=== PATIENT | male | born 1960 | race Caucasian/White ===

== ENCOUNTER 2020-02-09 21:06 | Emergency (ER) | payer BC ==
[2020-02-09 21:15] VITALS: BP 136/88; PULSE 88
--- NOTE | 2020-02-09 21:37 | EDM.PDOC ---
ED HPI GENERAL MEDICAL PROBLEM - General Chief Complaint: Laceration Stated Complaint: HEAD INJURY Time Seen by Provider: 02/09/20 21:10 Source of Information: Reports: Patient History Limitations: Reports: No Limitations - History of Present Illness INITIAL COMMENTS - FREE TEXT/NARRATIVE: TRIAGE NOTE -- patient states he tripped on a rug around 730pm and hit the back of his head on a chair. he had no LOC and is not on a blood thinner. 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 As he stood up he fell over backwards and hit his head on a chair rung. This is what produced the laceration. He did not lose consciousness. He was not the least bit dazed. No neck pain. This was not a hard fall. No risk factors. Only treatment prior to arrival was putting some pressure on with some fabric or paper. He came by POV to the emergency department being driven by . There is minimal pain and little bleeding. Head Pain Score (Numeric/FACES): 3 - Related Data Allergies Allergy/AdvReac Type Severity Reaction Status Date / Time No Known Allergies Allergy Verified 02/09/20 21:14 Home Meds: Home Meds . [No Known Home Meds] 02/09/20 [History] Past Medical History - Past Health History Medical/Surgical History: Denies Medical/Surgical History Social & Family History - Tobacco Use Smoking Status *Q: Unknown Ever Smoked ED ROS GENERAL - Review of Systems Review Of Systems: Comprehensive ROS is negative, except as noted in HPI. ED EXAM, SKIN/RASH Exam: See Below Exam Limited By: No Limitations General Appearance: Alert, WD/WN, No Apparent Distress Eye Exam: Bilateral Eye: EOMI, PERRL Ears: Normal External Exam Nose: Normal Inspection Throat/Mouth: Normal Inspection, Normal Lips, Normal Voice, No Airway Compromise Head: Normocephalic, Other (Close to apex of head slightly to the left of midline there is a slightly diagonal 5 cm laceration clean no debris no foreign body clean margins minimal bleeding full-thickness of scalp.) Neck: Normal Inspection, Supple, Non-Tender, Full Range of Motion Respiratory/Chest: No Respiratory Distress, Lungs Clear Cardiovascular: Regular Rate, Rhythm GI/Abdominal: Soft, Non-Tender Back Exam: Normal Inspection Extremities: Normal Inspection, Non-Tender Neurological: Alert, Oriented, Normal Cognition, No Motor/Sensory Deficits Psychiatric: Normal Affect, Normal Mood Skin: Warm, Dry, Intact (Except as noted above), Normal Color Course - Vital Signs Last Recorded V/S: Last Vital Signs Temp 36.2 C 02/09/20 21:12 Pulse 88 02/09/20 21:12 Resp 16 02/09/20 21:12 BP 136/88 02/09/20 21:12 Pulse Ox 100 02/09/20 21:12 - Re-Assessments/Exams Free Text/Narrative Re-Assessment/Exam: 02/09/20 21:40 As the patient had no neurological symptoms no loss of consciousness was not at all days this was not a hard fall no neck tenderness or any issue of concern there was no need for imaging. No risk factors no anticoagulation is noted. The wound was cleansed with Betadine and irrigated with copious amount of normal saline, sterile. Wound was closed uneventfully with 12 small skin tammie. No local anesthesia was required. Patient tolerated well with minimal discomfort. See instructions below. Departure - Departure Time of Disposition: 21:42 Disposition: Home, Self-Care 01 Condition: Good Clinical Impression: Scalp laceration Qualifiers: Encounter type: initial encounter Qualified Code(s): S01.01XA - Laceration without foreign body of scalp, initial encounter - Discharge Information *PRESCRIPTION DRUG MONITORING PROGRAM REVIEWED*: Not Applicable *COPY OF PRESCRIPTION DRUG MONITORING REPORT IN PATIENT JA: Not Applicable Instructions: Sutures, Orchard, or Adhesive Wound Closure Referrals: Dionna Vaughan, [employer] [Primary Care Provider] - Additional Instructions: You have been treated for a simple scalp laceration. As there was no loss of consciousness or any other neurological issue and no neck pain there was no need for imaging. The wound has been closed with tammie. After 24 hours you can gently irrigate the area with plain water. Antibiotics are rarely required for this kind of laceration. In the event of pain redness swelling discharge fever or any other concern please return to ER immediately. Tammie can be removed in about 7 days. You may come to the ER for that removal. You may want to report this injury to your primary and arrange any follow-up recommended by primary. Sepsis Event Note - Evaluation Sepsis Screening Result: No Definite Risk - Focused Exam Vital Signs: Vital Signs Temp Pulse Resp BP Pulse Ox 02/09/20 21:12 36.2 C 88 16 136/88 100 Date Exam was Performed: 02/09/20 Time Exam was Performed: 21:32
== END 2020-02-09 21:53 | disposition home or self-care (01) ==
LOC: JD.ED 21:06
DX: S01.01XA Laceration without foreign body of scalp, initial encounter (principal); W01.10XA Fall on same level from slipping, tripping and stumbling with subsequent striking against unspecified object, initial encounter; Y99.0 Civilian activity done for income or pay
CPT/HCPCS: 12002; 99282

== ENCOUNTER 2020-03-24 08:29 | Day surgery (SDC) | payer BC ==
[~2020-03-24 08:29] MED LIST: Lidocaine 1%/Sod Bicarbonate in NS 8.4% 1 ML Syringe IDERM PRN; Sodium Chloride 0.9% 10 ML Syringe FLUSH PRN
[2020-03-24] MEDS: Lactated Ringers 1,000 ML IV SCH ×2 (08:40→13:34)
--- NOTE | 2020-03-24 09:23 | PCM.PREANE ---
Preanesthetic Assessment - Procedure Proposed Procedure: Screening Colonoscopy - Anesthesia/Transfusion/Family Hx Anesthesia History: Prior Anesthesia Without Reaction Family History of Anesthesia Reaction: No - Review of Systems General: No Symptoms Pulmonary: No Symptoms Cardiovascular: No Symptoms, Other (History of PVCs in the past. He will feel skipping sometimes. Does not get dizzy or have any other trouble with his heart. ) Gastrointestinal: No Symptoms Neurological: No Symptoms, Other (Left ear tinnitus at times. None this morning. ) Other: Reports: None - Physical Assessment NPO Status Date: 03/24/20 NPO Status Time: 04:30 (prep ) Vital Signs: 152/87 69 16 96% 97.3F Weight: 82 kg ASA Class: 2 Mental Status: Alert & Oriented x3 Airway Class: Mallampati = 3 Dentition: Reports: Caries Thyro-Mental Finger Breadths: 3 Mouth Opening Finger Breadths: 3 ROM/Head Extension: Full Lungs: Clear to Auscultation, Normal Respiratory Effort Cardiovascular: Regular Rate, Regular Rhythm - Allergies Allergies/Adverse Reactions: Allergies Allergy/AdvReac Type Severity Reaction Status Date / Time No Known Allergies Allergy Verified 03/23/20 14:14 - Acknowledgements Anesthesia Type Planned: MAC Pt an Appropriate Candidate for the Planned Anesthesia: Yes Alternatives and Risks of Anesthesia Discussed w Pt/Guardian: Yes Pt/Guardian Understands and Agrees with Anesthesia Plan: Yes PreAnesthesia Questionnaire - Past Health History Medical/Surgical History: Denies Medical/Surgical History HEENT History: Reports: Otitis Media, Other (See Below) Other HEENT History: ceruminosis, decreased hearing, tinnitis Cardiovascular History: Reports: High Cholesterol, Hypertension, Other (See Below) Other Cardiovascular History: PVCs Respiratory History: Reports: None Gastrointestinal History: Reports: GERD Genitourinary History: Reports: None ELECTRICAL AND INSTRUMENT ENGINEER History: Reports: None Musculoskeletal History: Reports: Other (See Below) Other Musculoskeletal History: back strain Neurological History: Reports: Other (See Below) Other Neuro History: motion sickness Psychiatric History: Reports: None Endocrine/Metabolic History: Reports: None Hematologic History: Reports: None Immunologic History: Reports: None Oncologic (Cancer) History: Reports: None Dermatologic History: Reports: None - Infectious Disease History Infectious Disease History: Reports: None - Past Surgical History Head Surgeries/Procedures: Reports: None HEENT Surgical History: Reports: None Cardiovascular Surgical History: Reports: None Respiratory Surgical History: Reports: None GI Surgical History: Reports: Hernia, Inguinal Female Surgical History: Reports: None Male Surgical History: Reports: None Endocrine Surgical History: Reports: None Neurological Surgical History: Reports: None Musculoskeletal Surgical History: Reports: None Oncologic Surgical History: Reports: None Dermatological Surgical History: Reports: None - SUBSTANCE USE Smoking Status *Q: Never Smoker Tobacco Use Within Last Twelve Months: No Days Per Week of Alcohol Use: 4 Number of Drinks Per Day: 2 (1 to 2) Total Drinks Per Week: 8 Recreational Drug Use History: No - HOME MEDS Home Medications: Home Meds Losartan [Cozaar] 50 mg PO DAILY 03/23/20 [History] Omeprazole 40 mg PO DAILY 03/23/20 [History] Rosuvastatin [Crestor] 10 mg PO DAILY 03/23/20 [History] - CURRENT (IN HOUSE) MEDS Current Meds: Current Medications Lactated Ringer's (Ringers, Lactated) 1,000 mls @ 125 mls/hr IV ASDIRECTED [place] Stop: 03/24/20 23:00 Lidocaine/Sodium Bicarbonate (Buffered Lidocaine 1% In Ns 8.4%) 0.25 ml IDERM ONETIME PRN PRN Reason: Prior to IV Start Stop: 03/24/20 18:00 Sodium Chloride (Saline Flush) 10 ml FLUSH ASDIRECTED PRN PRN Reason: Keep Vein Open Stop: 03/24/20 18:00
[2020-03-24] MEDS ORDERED: Propofol 200 MG/20 ML SDV ONE (11:22)
[2020-03-24] MEDS ORDERED: fentaNYL 100 MCG/2 ML SDV ONE (11:23)
[2020-03-24] MEDS ORDERED: Lidocaine 1% 4 ML ONE (11:28)
--- NOTE | 2020-03-24 12:09 | PCM.PRNOTE ---
- Free Text/Narrative Note: Date: 03/24/2020 Procedure: screening colonoscopy Endoscopist: Fitz Garcia MD Findings: Ileocecal valve visualized. Prep was excellent. Detailed Report: The patient was taken to the endoscopy suite and placed in left lateral decubitus position. Time out was performed and monitored anesthesia care was initiated. The anus appeared normal. Digital rectal exam was unremarkable. The lubricated colonoscope was then inserted and advanced all the way to the cecum. The ileocecal valve was visualized. The prep was noted to be excellent. On slow withdrawal of the scope, mucosal surfaces were carefully inspected. No polyps were identified. No diverticular disease or hemorrhoidal disease appreciated. Air was suctioned prior to complete withdrawal of the scope. The patient tolerated the procedure well. Fitz Garcia MD General Surgery
--- NOTE | 2020-03-24 12:16 | PCM48HPAN ---
Post Anesthesia Note - EVALUATION WITHIN 48HRS OF ANESTHETIC Vital Signs in Normal Range: Yes Patient Participated in Evaluation: Yes Respiratory Function Stable: Yes Airway Patent: Yes Cardiovascular Function Stable: Yes Hydration Status Stable: Yes Pain Control Satisfactory: Yes Nausea and Vomiting Control Satisfactory: Yes Mental Status Recovered: Yes Vital Signs: Last Vital Signs Temp 98.1 F 03/24/20 11:59 Pulse 64 03/24/20 11:59 Resp 14 03/24/20 11:59 BP 91/55 L 03/24/20 11:59 Pulse Ox 96 03/24/20 12:02
[2020-03-24 12:57] VITALS: BP 154/98; PULSE 79
== END 2020-03-24 13:13 | disposition home or self-care (01) ==
LOC: JD.SDS 08:29
PROVIDERS: ATTEND Surgery
DX: Z12.11 Encounter for screening for malignant neoplasm of colon (principal); K21.9 Gastro-esophageal reflux disease without esophagitis; E78.5 Hyperlipidemia, unspecified; I10 Essential (primary) hypertension; E78.00 Pure hypercholesterolemia, unspecified; Z79.899 Other long term (current) drug therapy
CPT/HCPCS: 45378; J2001; J2704; J3010; J7120; 00812

== ENCOUNTER 2024-08-13 06:42 | Day surgery (SDC) | payer MEDICARE, BC ==
[~2024-08-13 06:42] MED LIST changes: -Lidocaine 1%/Sod Bicarbonate in NS 8.4% 1 ML Syringe IDERM PRN; +Propofol 200 MG/20 ML SDV ONE; +Sodium Chloride 0.9% 10 ML Syringe FLUSH SCH
[2024-08-13] MEDS: Lactated Ringers 1,000 ML IV SCH (07:00)
[2024-08-13] MEDS ORDERED: Propofol 200 MG/20 ML SDV ONE (07:20)
[2024-08-13 13:48] VITALS: BP 145/82; PULSE 64
== END 2024-08-13 09:08 | disposition home or self-care (01) ==
LOC: JD.SDS 06:42
PROVIDERS: ATTEND Surgery
DX: K22.70 Barrett's esophagus without dysplasia (principal); K31.89 Other diseases of stomach and duodenum; K21.9 Gastro-esophageal reflux disease without esophagitis; R13.10 Dysphagia, unspecified; K44.9 Diaphragmatic hernia without obstruction or gangrene; I10 Essential (primary) hypertension; E78.00 Pure hypercholesterolemia, unspecified; Z79.899 Other long term (current) drug therapy
CPT/HCPCS: 43239; J2704; J7120; 00731; 88305

== ENCOUNTER 2024-10-15 07:00 | Observation (INO) | payer MEDICARE, BC ==
[~2024-10-15 07:00] MED LIST changes: -Propofol 200 MG/20 ML SDV ONE; -Sodium Chloride 0.9% 10 ML Syringe FLUSH SCH
[2024-10-15] MEDS ORDERED: Lactated Ringers 1,000 ML ONE (09:35)
[2024-10-15] MEDS ORDERED: fentaNYL 250 MCG/5 ML SDV ONE (09:35)
[2024-10-15] MEDS ORDERED: dexmedeTOMIDine HCl 200 MCG/2 ML SDV ONE (09:35)
[2024-10-15] MEDS ORDERED: Rocuronium 50 MG/5 ML Vial ONE ×2 (09:35→12:57)
[2024-10-15] MEDS ORDERED: Midazolam 1 MG/ML 2 ML SDV ONE (09:35)
[2024-10-15] MEDS ORDERED: ceFAZolin 2 GM Vial ONE (09:35)
[2024-10-15] MEDS ORDERED: Lidocaine 1% 4 ML ONE (09:36)
[2024-10-15] MEDS ORDERED: Dexamethasone 4 MG/ML 5 ML MDV ONE (09:36)
[2024-10-15] MEDS ORDERED: Ketorolac 30 MG/ML SDV ONE (09:36)
[2024-10-15] MEDS ORDERED: Ondansetron 4 MG/2 ML SDV ONE (09:36)
[2024-10-15] MEDS ORDERED: Propofol 200 MG/20 ML SDV ONE (10:06)
[2024-10-15] MEDS: Lactated Ringers 1,000 ML IV SCH ×2 (11:05→19:50)
[2024-10-15] MEDS ORDERED: ePHEDrine 50 MG/ML SDV ONE (11:59)
[2024-10-15] MEDS ORDERED: Glycopyrrolate 0.2 MG/ML 2 ML SDV ONE (12:11)
[2024-10-15] MEDS ORDERED: HYDROmorphone 0.5 MG/0.5 ML Syringe ONE (12:32)
[2024-10-15] MEDS: Bupivacaine 0.5% 30 ML SDV ONE (13:27)
[2024-10-15] MEDS: EPINEPHrine 1 MG/ML SDV ONE (13:27)
[2024-10-15] MEDS ORDERED: Sugammadex Sodium 200 MG/2 ML VIAL IV ONE (13:35)
[2024-10-15] MEDS ORDERED: Acetaminophen 325 MG Tab PO PRN (15:02)
[2024-10-15] MEDS ORDERED: Ondansetron 4 MG Tab.DIS PO PRN (15:02)
[2024-10-15] MEDS ORDERED: Promethazine 25 MG Tab PO PRN (15:02)
[2024-10-15] MEDS ORDERED: HYDROmorphone 0.5 MG/0.5 ML Syringe IVPUSH PRN (15:02)
[2024-10-15] MEDS ORDERED: Colchicine 0.6 MG Tab PO PRN (15:07)
[2024-10-15] MEDS ORDERED: Simethicone 80 MG Tab.Chew PO PRN (15:08)
[2024-10-15] MEDS ORDERED: Benzocaine/Cetylpyridinium/Menthol Lozenge MUCMEM PRN (15:08)
[2024-10-15] MEDS ORDERED: diphenhydrAMINE 50 MG/ML SDV IVPUSH PRN (15:09)
[2024-10-15] MEDS: oxyCODONE 5 MG Tab PO PRN (18:33)
[2024-10-15] MEDS: Ketorolac 30 MG/ML SDV IVPUSH SCH (19:50)
[2024-10-15] MEDS: Sodium Chloride 0.9% 10 ML Syringe FLUSH SCH (19:52)
[2024-10-16 04:53] LABS: HEMATOCRIT 35.7 % (42.0-52.0); HEMOGLOBIN 12.6 gm/dl (14.0-18.0); MEAN CORPUSCULAR HEMOGLOBIN 34.7 pg (28.0-32.0); MEAN CORPUSCULAR HGB CONC 35.3 g/dl (32.0-36.0); MEAN CORPUSCULAR VOLUME 98.3 fl (83.0-99.0); MEAN PLATELET VOLUME 11.4 fl (9.4-12.4); PLATELET COUNT,PLT 155 K/mm3 (150-400); RED BLOOD CELL COUNT 3.63 M/mm3 (4.52-5.90); WHITE BLOOD CELL COUNT,WBC 11.23 K/mm3 (3.9-11.3)
[2024-10-16 05:05] LABS: ANION GAP 15.3 (5-15); BUN/CREATININE RATIO 13.3 (14-18); CALCIUM 8.5 mg/dL (8.5-10.1); CREATININE 1.2 mg/dL (0.7-1.3); EST CRCL DRUG DOSING (CG) 62.52 mL/min; POTASSIUM,K 4.3 mEq/L (3.5-5.1)
[2024-10-16 07:37] VITALS: BP 142/79; PULSE 95
[2024-10-16] MEDS: Enoxaparin 40 MG/0.4 ML Syringe SUBCUT SCH (08:13)
[2024-10-16] MEDS: Allopurinol 300 MG Tab PO SCH (08:14)
[2024-10-16] MEDS: Rosuvastatin 10 MG Tab PO SCH (08:14)
== END 2024-10-16 12:33 | disposition home or self-care (01) ==
LOC: JD.MS 09:51
PROVIDERS: ADMIT Surgery; ATTEND Surgery
DX: K44.9 Diaphragmatic hernia without obstruction or gangrene (principal); K21.00 Gastro-esophageal reflux disease with esophagitis, without bleeding; E78.00 Pure hypercholesterolemia, unspecified; I10 Essential (primary) hypertension; Z79.84 Long term (current) use of oral hypoglycemic drugs; Z79.899 Other long term (current) drug therapy
CPT/HCPCS: 36415; 43280; 80048; 85027; 94760; A9270; J0171; J0665; J0690; J1100; J1650; J1885; J2250; J2405; J2704; J3010; J3490; J7120; G0378

== ENCOUNTER 2025-09-01 19:47 | Emergency (ER) | payer MEDICARE, BC ==
[2025-09-01] MEDS ORDERED: Sodium Chloride 0.9% 10 ML Syringe FLUSH PRN (20:20)
[2025-09-01 20:45] LABS: BASOPHILS ABSOLUTE AUTO 0.1 K/mm3 (0.0-0.2); BASOPHILS PERCENT AUTO 0.9 % (0.0-1.0); EOSINOPHILS ABSOLUTE AUTO 0.6 K/mm3 (0.0-0.4); EOSINOPHILS PERCENT AUTO 5.7 % (0.0-6.0); IMMATURE GRAN ABSOLUTE AUTO 0.03 K/mm3 (0.00-0.05); IMMATURE GRAN PERCENT AUTO 0.3 % (0.0-0.4); LYMPHOCYTES ABSOLUTE AUTO 2.6 K/mm3 (1.0-4.8); LYMPHOCYTES PERCENT AUTO 25.9 % (24.0-44.0); MEAN PLATELET VOLUME 11.1 fl (9.4-12.4); MONOCYTES ABSOLUTE AUTO 0.7 K/mm3 (0.0-0.8); MONOCYTES PERCENT AUTO 7.4 % (0.0-8.0); NEUTROPHILS ABSOLUTE AUTO 6.0 K/mm3 (1.8-7.7); NEUTROPHILS PERCENT AUTO 59.8 % (41.0-71.0); NRBC ABSOLUTE 0.00 (0.00-0.02); NRBC PERCENT 0.0 % (0.0-0.2); PLATELET COUNT,PLT 172 K/mm3 (150-400); RED BLOOD CELL COUNT 3.41 M/mm3 (4.52-5.90); WHITE BLOOD CELL COUNT,WBC 10.06 K/mm3 (3.9-11.3)
[2025-09-01 21:34] LABS: A/G RATIO 1.1 (1-2); ALANINE AMINOTRANSFERASE,ALT 26.0 U/L (16-63); ASPARTATE AMNIOTRANSFERASE,AST 18.0 U/L (15-37); BILIRUBIN TOTAL 0.4 mg/dL (0.2-1.0); BLOOD UREA NITROGEN,BUN 21.0 mg/dL (7-18); CARBON DIOXIDE,CO2 26.0 mEq/L (21-32); CHLORIDE,CL 103.0 mEq/L (98-107); CREATININE 1.1 mg/dL (0.7-1.3); EST CRCL DRUG DOSING (CG) 67.29 mL/min; ESTIMATED GFR 74.0 mL/min (>60); ETHANOL BLOOD MEDICAL 0.01 gm% (0.00); GLUCOSE RANDOM 99.0 mg/dL (70-99); POTASSIUM,K 4.0 mEq/L (3.5-5.1); PROTEIN TOTAL,TP 7.5 g/dl (6.4-8.2); SODIUM,NA 141.0 mEq/L (136-145); TROPONIN I HIGH SENSITIVITY 8.0 pg/mL (<=76); TSH 4.844 uIU/mL (0.358-3.74)
[2025-09-01 21:54] LABS: T4 FREE 0.77 ng/dL (0.76-1.46)
[2025-09-01 22:03] LABS: O2 SATURATION ARTERIAL 97.4 % (96.0-97.0); PCO2 ARTERIAL 32.0 mmHg (35.0-45.0); PO2 ARTERIAL 96.0 mmHg (80.0-100.0)
[2025-09-01 22:04] LABS: BASE EXCESS ARTERIAL 1.6 (-2-2.0); BICARBONATE,ARTERIAL 24.4 meq/L (22.0-26.0)
[2025-09-01 23:22] VITALS: BP 141/85; PULSE 90
== END 2025-09-01 23:17 | disposition home or self-care (01) ==
LOC: JD.ED 19:47
DX: Z77.29 Contact with and (suspected) exposure to other hazardous substances (principal); I10 Essential (primary) hypertension; E78.00 Pure hypercholesterolemia, unspecified; K21.9 Gastro-esophageal reflux disease without esophagitis; Z79.899 Other long term (current) drug therapy; Z79.84 Long term (current) use of oral hypoglycemic drugs
CPT/HCPCS: 36415; 36600; 71045; 71045-26; 80053; 80307; 82803; 83735; 84439; 84443; 84484; 85025; 93005; 93010; 99283; 99284